=== PATIENT | male | born 1950 | race American Indian/Alaskan Native ===

== ENCOUNTER 2019-08-22 06:55 | Outpatient (CLI) | payer OTHER ==
[2019-08-22 08:48] LABS: Blood Urea Nitrogen 26 mg/dL (9-20)
--- NOTE | 2019-08-22 11:32 | Cat Scan Report ---
CT ABDOMEN AND PELVIS WITH AND WITHOUT CONTRAST HISTORY: HX OF HCV/30LBS WEIGHT LOSS. Hepatitis C infection. COMPARISON: None. TECHNIQUE: Axial CT images were obtained through the abdomen and pelvis before and after 100 cc of Om nipaque 300 intravenously. Sagittal and coronal reformatted images. All CT scans at this location are performed using CT dose reduction for ALARA by means of automated exposure control. FINDINGS: CT ABDOMEN: Lung Bases: Clear. Heart size is normal. Mild coronary artery calcifications are noted. Liver: No significant abnormality. No cirrhotic changes or liver mass. Biliary: No significant abnormality. Spleen: There is borderline to mild splenomegaly measuring 14.9 cm in length. Multiple calcified sple melody granulomas are noted. Pancreas: No significant abnormality. Adrenals: No significant abnormality. Kidneys: No significant abnormality. 1 cm left renal cyst is noted. Lymphatics: No lymphadenopathy. Vasculature: Moderate scattered calcific plaques are noted in the distal aorta. No dissection or aneu rysm. The venous structures appear patent. No varicosities are identified. Bowel/Peritoneum: No evidence for bowel obstruction or focal inflammation. No obvious mass. There is mild fecal retention throughout the colon. No evidence for pneumatosis, free fluid or free air. The a ppendix is not confidently identified. CT PELVIS: : The prostate gland is markedly enlarged with mild heterogeneous enhancement. The prostate gland m easures 7.4 cm in diameter. The bladder and distal ureters are unremarkable. Osseous Structures: Intact. Moderate to severe degenerative disc disease at L5-S1. No suspicious bony lesion or fracture is identified. Additional Findings: Small right inguinal hernia containing fat is noted. IMPRESSION: No acute inflammatory process. Enlarged and heterogeneous prostate gland. Recommend correlation with PSA levels. Unremarkable liver. Borderline to mild splenomegaly. Signer Name: Amador Mead Jr, MD Signed: 08/22/2019 11:27 AM Workstation Name: [id number]
== END 2019-08-22 06:56 | disposition home or self-care (01) ==
LOC: CT 06:55
PROVIDERS: ATTEND Internal Medicine
DX: B19.20 Unspecified viral hepatitis C without hepatic coma (principal); M51.36 Other intervertebral disc degeneration, lumbar region; K40.90 Unilateral inguinal hernia, without obstruction or gangrene, not specified as recurrent
CPT/HCPCS: 36415; 74178; 82565; 84520; Q9967